=== PATIENT | female | born 1970 | race African-American/Black ===

== ENCOUNTER 2017-08-09 17:49 | Emergency (ER) | payer OTHER ==
[~2017-08-09] VITALS: Ht 160 cm; Wt 86.4 kg
[~2017-08-09 17:49] MED LIST: NOCURR
[2017-08-09] MEDS ORDERED: KETOROLAC TROMETHAMINE 60 MG/2 ML VIAL IM ONE (19:15)
[2017-08-09 20:00] VITALS: BP 137/85
== END 2017-08-09 20:10 | disposition home or self-care (01) ==
LOC: EMS 17:50
DX: S16.1XXA Strain of muscle, fascia and tendon at neck level, initial encounter (principal); R51 Headache; E07.9 Disorder of thyroid, unspecified; V49.88XA Car occupant (driver) (passenger) injured in other specified transport accidents, initial encounter; Y93.89 Activity, other specified; Y92.89 Other specified places as the place of occurrence of the external cause; Y99.8 Other external cause status
CPT/HCPCS: 70450; 72125; 96372; 99284; J1885